=== PATIENT | female | born 1980 | race Two or more races ===

== ENCOUNTER 2018-06-18 01:17 | Emergency (ER) | payer OTHER ==
[2018-06-18 01:54] VITALS: TEMP 98; BMI 21.3
--- NOTE | 2018-06-18 02:27 | PDOC ---
Attending Attestation - Resident Resident Name: Tye Choi - ED Attending Attestation I have performed the following: I have examined & evaluated the patient, The case was reviewed & discussed with the resident, I agree w/resident's findings & plan, Exceptions are as noted <Kavon Delgadillo - Last Filed: 06/18/18 02:27> - HPI HPI: 06/18/18 02:29 The patient is a 37 year old female, 8 week IUP, with no significant past medical history, who presents to the emergency department with lower abdominal pain after taking misoprostol by her SAMPLE MAKER HAND to promote . She states she was told to expect abdominal cramping and vaginal bleeding, however, reports her pain is intolerable, 10/10 in severity. The patient denies chest pain, shortness of breath, headache and dizziness. The patient denies fever, chills, nausea, vomit, diarrhea and constipation. The patient denies dysuria, frequency, urgency and hematuria. Allergies: NKDA - Physicial Exam PE: 06/18/18 02:29 GENERAL: Well developed, well nourished. Awake and alert. No acute distress. HEENT: Normocephalic, atraumatic. PERRLA, EOMI. No conjunctival pallor. Sclera are non- icteric. Moist mucous membranes. Oropharynx is clear. NECK: Supple. Full ROM. No JVD. Carotid pulses 2+ and symmetric, without bruits. No thyromegaly. No lymphadenopathy. CARDIOVASCULAR: Regular rate and rhythm. No murmurs, rubs, or gallops. Distal pulses are 2+ and symmetric. PULMONARY: No evidence of respiratory distress. Lungs clear to auscultation bilaterally. No wheezing, rales or rhonchi. ABDOMINAL: (+) lower abdominal tenderness. Soft. Non-distended. No rebound or guarding. No organomegaly. Normoactive bowel sounds. MUSCULOSKELETAL Normal range of motion at all joints. No bony deformities or tenderness. No CVA tenderness. EXTREMITIES: No cyanosis. No clubbing. No edema. No calf tenderness. SKIN: Warm and dry. Normal capillary refill. No rashes. No jaundice. NEUROLOGICAL: Alert, awake, appropriate. Cranial nerves 2-12 intact. Normoreflexic in the upper and lower extremities. Normal speech. Toes are down-going bilaterally. Gait is normal without ataxia. PSYCHIATRIC: Cooperative. Good eye contact. Appropriate mood and affect. - Medical Decision Making 06/18/18 02:30 Documentation prepared by Ana Garcia, acting as medical reception specialist for Kavon Delgadillo DO. <Ana Garcia - Last Filed: 06/18/18 02:31>
--- NOTE | 2018-06-18 02:39 | PDOC ---
History of Present Illness - General Chief Complaint: Pain, Acute Stated Complaint: ABD PAIN,VAGINAL BLEEDING Time Seen by Provider: 06/18/18 02:08 History Source: Patient Exam Limitations: No Limitations - History of Present Illness Initial Comments: 06/18/18 06:47 Ms. Downing is a 37 yo F 8 w 0 d IUP with no pertinent past medical history presents for lower abdominal pain and vaginal bleeding s/p 1x dose of misoprostol for planned . She saw her OBGYN doctor, Dr. Orozco, who started her on misoprostol today. She took the pill at 10:30 pm and began having 10/10 non radiating cramping lower abdominal pain with vaginal bleeding as she was told to expect from her physician. The pain was unbearable and came to the ED. She changed her pad twice. Her last bhcg was 2600 yesterday per the patient. Pmhx: None Shx: C/S 15 years ago Meds: None Allergies: None Social: Denies tobacco and drug use. Social drinker. Past History - Past Medical History Allergies/Adverse Reactions: Allergies Allergy/AdvReac Type Severity Reaction Status Date / Time No Known Allergies Allergy Verified 06/18/18 06:29 Home Medications: Ambulatory Orders NK [No Known Home Medication] 06/18/18 COPD: No - Suicide/Smoking/Psychosocial Hx Smoking History: Never smoked Have you smoked in the past 12 months: No Information on smoking cessation initiated: No Hx Alcohol Use: No Drug/Substance Use Hx: No Review of Systems - Review of Systems Able to Perform ROS?: Yes Constitutional: Yes: Weakness. No: Chills, Diaphoresis, Fever HEENTM: No: Recent change in vision, Ear Pain, Nose Pain, Throat Pain, Mouth Pain Respiratory: No: Cough, Shortness of Breath Cardiac (ROS): No: Chest Pain ABD/GI: Yes: Abdominal cramping (lower). No: Constipated, Diarrhea, Nausea, Rectal Bleeding, Vomiting, Tarry Stools : No: Burning, Dysuria, Hematuria Musculoskeletal: No: Back Pain Integumentary: No: Rash Neurological: No: Headache, Numbness, Seizure, Ataxia Psychiatric: No: Stressors Endocrine: No: Unexplained Weight Gain Hematologic/Lymphatic: No: Anemia *Physical Exam - Vital Signs Last Vital Signs Temp Pulse Resp BP Pulse Ox 98.0 F 75 18 114/71 100 06/18/18 01:52 06/18/18 01:52 06/18/18 01:52 06/18/18 01:52 06/18/18 01:52 - Physical Exam General Appearance: Yes: Nourished, Appropriately Dressed HEENT: positive: EOMI, MARY BETH Neck: positive: Trachea midline. negative: Lymphadenopathy (R), Lymphadenopathy (L) Respiratory/Chest: positive: Lungs Clear, Normal Breath Sounds Cardiovascular: positive: Regular Rhythm, Regular Rate, S1, S2. negative: Systolic Murmur Vascular Pulses: Dorsalis-Pedis (R): 3+, Doralis-Pedis (L): 3+ Gastrointestinal/Abdominal: positive: Normal Bowel Sounds, Tender (lower abdominal pain) Lymphatic: negative: Adenopathy Musculoskeletal: positive: Normal Inspection. negative: CVA Tenderness Extremity: positive: Normal Capillary Refill, Normal Inspection, Normal Range of Motion Integumentary: positive: Normal Color, Dry, Warm Neurologic: positive: distribution clerk II-XII NML intact, Fully Oriented, Alert, Normal Mood/ Affect, Normal Response, Motor Strength /5 ED Treatment Course - LABORATORY CBC & Chemistry Diagram: 06/18/18 03:28 06/18/18 03:27 Medical Decision Making - Medical Decision Making 37 yo F with hx of IUP at approximately 8 weeks s/p 1x dose of misoprostol administration with lower abdominal cramping and vaginal bleeding. ddx: incomplete vs complete vs threatened vs endangered miscarriage 2/2 to misoprostol administration Initial vitals: Initial Vital Signs Temp Pulse Resp BP Pulse Ox 98.0 F 75 18 114/71 100 06/18/18 01:52 06/18/18 01:52 06/18/18 01:52 06/18/18 01:52 06/18/18 01:52 Work up: Laboratory Tests 06/18/18 06/18/18 03:27 03:28 WBC 10.3 H RBC 4.19 Hgb 12.5 Hct 36.6 MCV 87.4 MCH 29.9 MCHC 34.2 RDW 12.3 Plt Count 255 MPV 8.2 Absolute Neuts (auto) 7.8 Neutrophils % 75.5 D Lymphocytes % 15.2 D Monocytes % 6.0 Eosinophils % 2.9 Basophils % 0.4 Nucleated RBC % 0 Sodium 136 Potassium 3.7 Chloride 105 Carbon Dioxide 22 Anion Gap 9 BUN 9 Creatinine 0.6 Creat Clearance w eGFR > 60 Random Glucose 99 Calcium 8.8 Total Bilirubin 0.3 AST 11 L ALT 13 Alkaline Phosphatase 57 Total Protein 7.0 Albumin 3.7 Beta HCG, Quant 79020.4 06/18/18 06:50 While in the emergency department, she expelled what appeared to be products of conception at approximately 2am. These were placed in a specimen collection box and given to the pathology department for assessment for POC. Signed out to Dr. Feliciano for further care and management with pending ultrasound to be done in the AM. *DC/Admit/Observation/Transfer Diagnosis at time of Disposition: Abdominal pain Qualifiers: Abdominal location: unspecified location Qualified Code(s): R10.9 - Unspecified abdominal pain - Discharge Dispostion Disposition: HOME Condition at time of disposition: Good - Referrals Referrals: Adriana Jang MD [Staff Physician] - Cain Huff MD [Primary Care Provider] - - Patient Instructions Printed Discharge Instructions: DI for Abdominal Pain-Adult, DI for Therapeutic : Medical, Therapeutic : Medical Additional Instructions: Please return to the Emergency Room for new or worsening symptoms including but not limited to: excessive vaginal bleeding, persistent abdominal pain, feelings of passing out. Please follow up with your PCP and your MANAGER CULTURE within the next 48 hours. - Post Discharge Activity
[2018-06-18] MEDS ORDERED: morphine CARPU-JECT 4 MG/1 ML DISP.SYRIN IVPUSH ONE (02:40)
[2018-06-18] MEDS ORDERED: MORPHINE SULFATE 2 MG/ML VIAL ONE (03:04)
[2018-06-18 03:47] LABS: BASO % 0.4 % (0-2.0); EOS % 2.9 % (0-4.5); HEMATOCRIT 36.6 % (32.4-45.2); HEMOGLOBIN 12.5 GM/dL (10.7-15.3); LYMPH % 15.2 % (8-40); MCH 29.9 pg (25.7-33.7); MCHC 34.2 g/dl (32.0-36.0); MEAN CELL VOLUME 87.4 fl (80-96); MEAN PLT VOLUME 8.2 fl (7.5-11.1); NEUT % 75.5 % (42.8-82.8); PLATELET COUNT 255 K/MM3 (134-434); RBC 4.19 M/mm3 (3.60-5.2); RDW 12.3 % (11.6-15.6); WHITE BLOOD COUNT 10.3 K/mm3 (4.0-10.0)
[2018-06-18 04:09] LABS: ALBUMIN 3.7 g/dl (3.4-5.0); ALK PHOS 57 U/L (45-117); ANION GAP 9 MMOL/L (8-16); BILIRUBIN,TOTAL 0.3 mg/dL (0.2-1.0); BLOOD UREA NITROGEN 9 mg/dL (7-18); CALCIUM 8.8 mg/dL (8.5-10.1); CHLORIDE 105 mmol/L (98-107); CO2 22 mmol/L (21-32); CREATININE 0.6 mg/dL (0.55-1.02); GLUCOSE,RANDOM 99 mg/dL (74-106); POTASSIUM 3.7 mmol/L (3.5-5.1); SGOT/AST 11 U/L (15-37); SGPT/ALT 13 U/L (12-78); SODIUM 136 mmol/L (136-145)
--- NOTE | 2018-06-18 09:15 | PDOC ---
*Physical Exam - Vital Signs Last Vital Signs Temp Pulse Resp BP Pulse Ox 98.0 F 75 18 114/71 100 06/18/18 01:52 06/18/18 01:52 06/18/18 01:52 06/18/18 01:52 06/18/18 01:52 ED Treatment Course - LABORATORY CBC & Chemistry Diagram: 06/18/18 03:28 06/18/18 03:27 - ADDITIONAL ORDERS Additional order review: Laboratory Results 06/18/18 03:27 Sodium 136 Potassium 3.7 Chloride 105 Carbon Dioxide 22 Anion Gap 9 BUN 9 Creatinine 0.6 Creat Clearance w eGFR > 60 Random Glucose 99 Calcium 8.8 Total Bilirubin 0.3 AST 11 L ALT 13 Alkaline Phosphatase 57 Total Protein 7.0 Albumin 3.7 Beta HCG, Quant 04057.4 06/18/18 03:28 RBC 4.19 MCV 87.4 MCHC 34.2 RDW 12.3 MPV 8.2 Neutrophils % 75.5 D Lymphocytes % 15.2 D Monocytes % 6.0 Eosinophils % 2.9 Basophils % 0.4 - Medications Given in the ED: ED Medications Discontinued Medications Generic Name Dose Route Start Last Admin Trade Name Freq PRN Reason Stop Dose Admin Morphine Sulfate 4 mg 06/18/18 02:40 06/18/18 03:23 Morphine Injection - IVPUSH 06/18/18 02:41 4 mg ONCE ONE Administration Medical Decision Making - Medical Decision Making 06/18/18 09:[address] Choi 37 yo female took misoprostal as directed by corporation lawyer for a planned yesterday. Patient had campy abdominal pain and vaginal bleeding. Specimen sent to path to assess for tissue. Patients pain improved Patient awaiting ultrasound conformation for empty uterus and will be discharged home. Patient went to the bathroom prior to US and passed parts. Sent to lab Ultrasound shows uterus consistent with spontaneous and residual blood. 06/18/18 11:35 Will discharge patient home with PCP and corporation lawyer follow up *DC/Admit/Observation/Transfer Diagnosis at time of Disposition: Abdominal pain Qualifiers: Abdominal location: unspecified location Qualified Code(s): R10.9 - Unspecified abdominal pain - Discharge Dispostion Disposition: HOME Condition at time of disposition: Good Decision to Admit order: No - Referrals Referrals: Cain Huff MD [Primary Care Provider] - Adriana Jang MD [Staff Physician] - - Patient Instructions Printed Discharge Instructions: DI for Abdominal Pain-Adult, DI for Therapeutic : Medical, Therapeutic : Medical Additional Instructions: Please return to the Emergency Room for new or worsening symptoms including but not limited to: excessive vaginal bleeding, persistent abdominal pain, feelings of passing out. Please follow up with your PCP and your MEDICAL RECORD CODER within the next 48 hours. - Post Discharge Activity
[2018-06-18 12:08] VITALS: BP 109/69; PULSE 77
--- NOTE | 2018-06-19 13:28 | PATH ---
Surgical Pathology Report Patient Name: TOMASA PALACIOS [facility]. Rec. #: [id number] /Age/Gender: 1980 (Age: 37) / F Account: [id number] Location: EMERGENCY ROOM Taken: 06/18/2018 Received: 06/18/2018 Reported: 06/19/2018 Physicians: PHYSICIAN EMERGENCY DEPT Specimen(s) Received A: PRODUCTS OF CONCEPTION B: EXPELLED PRODUCTS Clinical History 8 weeks single IUP. Initiated 06/17/18 with Misoprostol at 10:30 PM. Had passage of contents in container at 12:00 AM 06/18/18. Final Diagnosis A. UTERINE CONTENTS, EVACUATION: CHORIONIC VILLI CONSISTENT WITH PRODUCTS OF CONCEPTION. B. UTERINE CONTENTS, EVACUATION: CHORIONIC VILLI CONSISTENT WITH PRODUCTS OF CONCEPTION, AND DECIDUA WITH AREAS OF NECROSIS. Comment: Chromosome analysis is pending, and a report will follow. Electronically Signed Travis Driver M.D. Gross Description A. Received fresh labeled with the patient's name and indicated on the requisition to be products of conception for chromosomal analysis, is a 4.0 x 3.2 x 0.7 cm aggregate of recinos-brown soft tissue fragments admixed with blood clot. Villous tissue is identified. No definite somatic tissue is identified. A client relations representative portion is placed in RPMI solution and sent for chromosomal analysis. An additional client relations representative portion is submitted in one cassette. B. Received fresh, labeled with the patient's name and indicated on the requisition to be products of conception, is a 7.0 x 4.5 x 1.0 cm portion of recinos-red soft tissue. No villous tissue or somatic tissues identified. A client relations representative portion is submitted in one cassette. /06/18/2018 saudi/06/18/2018
== END 2018-06-18 12:08 | disposition home or self-care (01) ==
LOC: JER 01:17
PROC: 3E033NZ Introduction of Analgesics, Hypnotics, Sedatives into Peripheral Vein, Percutaneous Approach (ICD-10-PCS; principal; 2018-06-18)
DX: O26.891 Other specified pregnancy related conditions, first trimester (principal); O03.9 Complete or unspecified spontaneous abortion without complication; Z3A.08 8 weeks gestation of pregnancy
CPT/HCPCS: 36415; 76801-TC; 80053; 84702; 85025; 88305-TC; 99283-25